=== PATIENT | female | born 1990 | race Caucasian/White ===

== ENCOUNTER 2016-08-07 14:55 | Emergency (ER) | payer OTHER ==
--- NOTE | 2016-08-07 15:37 | ED NURSING NOTES ---
Clinical Report - Nurses [facility] [address] [place] [address] 08/07/2016 14:57 Patient: MOIZ WELCH TRIAGE Triage time 15:06. Acuity: LEVEL 4. Chief Complaint: PAIN and VISION PROBLEM TO LEFT EYE. Alert. No acute distress. SEPSIS SCREEN: Sepsis Screen. Negative (no infection suspected/documented). NARESH COMA SCORE: Naresh Coma Scale: 15- eyes open spontaneously (4); best verbal response- oriented x 4 (5); best motor response- obeys commands (6). --15:13 Aleyda Vega R.N. 15:06 08/07/16. BP: 124/85. HR: 110. RR: 18. O2 saturation: 99%. Temp: 98.3 F. Pain level now 5/10. --15:13 Aleyda Vega R.N. Weight: 65.7 kg stated. Height/Length: 69 inches Per Patient. BMI: 21.4. --15:08 Aleyda Vega R.N. Medications None. --15:09 Aleyda Vega R.N. Allergies Sulfa Antibiotics. --15:09 Aleyda Vega R.N. History Arrived by private vehicle. Historian: patient. Unaccompanied. Primary physician (none). This started today. She did not sustain an injury. ( Pt. states she has been sleeping with her contacts in and not able to change them. She has had multiple eye infections in the past from this.). ( Pt. also c/o blood in stool: states she has had this for 3 months. It appears bright red in color. She also is having thick white vaginal discharge she is concerned about: this started a couple weeks ago. Denies abd. pain.). Treatment FITTER TACKER: None. PAST MEDICAL HX: Immunizations: up-to-date. Last normal menstrual period- 3 months ago. No contraception. SOCIAL HX: Current every day light tobacco smoker (cigarette)- less than 1/2 a pack per day. Occasional alcohol use. History of heavy IV drug use: heroin, methamphetamines. She has not traveled outside the [place] SELF HARM ASSESSMENT: A self harm assessment was performed. The patient answered "no" to the question "Are you here because you tried to hurt yourself?" and "Have you recently had thoughts about harming or killing others?". NUTRITIONAL RISK ASSESSMENT: The nutritional risk assessment revealed no deficiencies. FUNCTIONAL ASSESSMENT: Functional assessment: no impairments noted. LEARNING NEEDS ASSESSMENT: The learning needs assessment revealed no barriers. ABUSE ASSESSMENT: Abuse assessment: The patient was asked "Do you feel safe in your home?" and "Has anyone hurt you or threatened to hurt you?". --15:13 Aleyda Vega R.N. PROBLEMS: Hepatitis. Cystitis. UTI - Urinary Tract Infection. Lifestyle / Substance Problems. Substance Abuse. Drug Addiction. Anemia. Corneal Ulcer. Eye Injury. Wears Contacts. --15:10 Aleyda Vega R.N. ADDITIONAL SURGERIES: . --15:10 Aleyda Vega R.N. Interventions ID band on patient. Ambulatory. --15:13 Aleyda Vega R.N. PHYSICAL ASSESSMENT Ambulatory to room. GENERAL / NEURO / PSYCH: Alert. Appears in no acute distress. HEENT: No facial asymmetry noted. Conjunctival findings present: redness of the left conjunctiva. RESPIRATORY: Respirations not labored. CVS: Capillary refill less than 2 seconds. SKIN: Skin is warm and dry. --15:13 Aleyda Vega R.N. NURSING PROGRESS NOTES Patient gowned. Head of bed elevated. Two patient identifiers checked. Call light placed in reach. Side rails up x 2. Bed placed in lowest position. Brakes of bed on. Patient ready for evaluation- chart flagged. --15:14 Aleyda Vega R.N. DISPOSITION / DISCHARGE 15:44 08/07/16. Condition at departure: unchanged. The goals identified in the patient's plan of care were met. No learning barriers present. Discharge instructions provided and reviewed with the patient. Reviewed warnings. Reviewed medication(s). Treatments reviewed. Patient verbalized understanding. Written instructions provided in Sinhala. The patient was discharged by the nurse practitioner. She was discharged home. She left the Emergency Department ambulatory. FALL RISK ASSESSMENT: Fall risk assessment completed. No fall risk identified. --15:44 Stepan Davenport R.N. 15:44 08/07/16. BP: 118/72. HR: 81. RR: 14. O2 saturation: 100% on room air. --15:44 Stepan Davenport R.N. 15:45 08/07/16. Departure time: 15:45. --15:45 Stepan Davenport R.N. Locked/Released at 08/07/2016 15:45 by Stepan Davenport R.N.
--- NOTE | 2016-08-07 15:37 | ED NURSING NOTES ---
Clinical Report - Nurses [facility] [address] [place] [address] 08/07/2016 14:57 Patient: MOIZ WELCH TRIAGE Triage time 15:06. Acuity: LEVEL 4. Chief Complaint: PAIN and VISION PROBLEM TO LEFT EYE. Alert. No acute distress. SEPSIS SCREEN: Sepsis Screen. Negative (no infection suspected/documented). NARESH COMA SCORE: Naresh Coma Scale: 15- eyes open spontaneously (4); best verbal response- oriented x 4 (5); best motor response- obeys commands (6). --15:13 Aleyda Vega R.N. 15:06 08/07/16. BP: 124/85. HR: 110. RR: 18. O2 saturation: 99%. Temp: 98.3 F. Pain level now 5/10. --15:13 Aleyda Vega R.N. Weight: 65.7 kg stated. Height/Length: 69 inches Per Patient. BMI: 21.4. --15:08 Aleyda Vega R.N. Medications None. --15:09 Aleyda Vega R.N. Allergies Sulfa Antibiotics. --15:09 Aleyda Vega R.N. History Arrived by private vehicle. Historian: patient. Unaccompanied. Primary physician (none). This started today. She did not sustain an injury. ( Pt. states she has been sleeping with her contacts in and not able to change them. She has had multiple eye infections in the past from this.). ( Pt. also c/o blood in stool: states she has had this for 3 months. It appears bright red in color. She also is having thick white vaginal discharge she is concerned about: this started a couple weeks ago. Denies abd. pain.). Treatment STRATEGY EXECUTION CONSULTANT: None. PAST MEDICAL HX: Immunizations: up-to-date. Last normal menstrual period- 3 months ago. No contraception. SOCIAL HX: Current every day light tobacco smoker (cigarette)- less than 1/2 a pack per day. Occasional alcohol use. History of heavy IV drug use: heroin, methamphetamines. She has not traveled outside the [place] SELF HARM ASSESSMENT: A self harm assessment was performed. The patient answered "no" to the question "Are you here because you tried to hurt yourself?" and "Have you recently had thoughts about harming or killing others?". NUTRITIONAL RISK ASSESSMENT: The nutritional risk assessment revealed no deficiencies. FUNCTIONAL ASSESSMENT: Functional assessment: no impairments noted. LEARNING NEEDS ASSESSMENT: The learning needs assessment revealed no barriers. ABUSE ASSESSMENT: Abuse assessment: The patient was asked "Do you feel safe in your home?" and "Has anyone hurt you or threatened to hurt you?". --15:13 Aleyda Vega R.N. PROBLEMS: Hepatitis. Cystitis. UTI - Urinary Tract Infection. Lifestyle / Substance Problems. Substance Abuse. Drug Addiction. Anemia. Corneal Ulcer. Eye Injury. Wears Contacts. --15:10 Aleyda Vega R.N. ADDITIONAL SURGERIES: . --15:10 Aleyda Vega R.N. Interventions ID band on patient. Ambulatory. --15:13 Aleyda Vega R.N. PHYSICAL ASSESSMENT Ambulatory to room. GENERAL / NEURO / PSYCH: Alert. Appears in no acute distress. HEENT: No facial asymmetry noted. Conjunctival findings present: redness of the left conjunctiva. RESPIRATORY: Respirations not labored. CVS: Capillary refill less than 2 seconds. SKIN: Skin is warm and dry. --15:13 Aleyda Vega R.N. NURSING PROGRESS NOTES Patient gowned. Head of bed elevated. Two patient identifiers checked. Call light placed in reach. Side rails up x 2. Bed placed in lowest position. Brakes of bed on. Patient ready for evaluation- chart flagged. --15:14 Aleyda Vega R.N. DISPOSITION / DISCHARGE 15:44 08/07/16. Condition at departure: unchanged. The goals identified in the patient's plan of care were met. No learning barriers present. Discharge instructions provided and reviewed with the patient. Reviewed warnings. Reviewed medication(s). Treatments reviewed. Patient verbalized understanding. Written instructions provided in Uzbek. The patient was discharged by the nurse practitioner. She was discharged home. She left the Emergency Department ambulatory. FALL RISK ASSESSMENT: Fall risk assessment completed. No fall risk identified. --15:44 Stepan Davenport R.N. 15:44 08/07/16. BP: 118/72. HR: 81. RR: 14. O2 saturation: 100% on room air. --15:44 Stepan Davenport R.N. 15:45 08/07/16. Departure time: 15:45. --15:45 Stepan Davenport R.N. Locked/Released at 08/07/2016 15:45 by Stepan Davenport R.N.
--- NOTE | 2016-08-07 15:37 | ED CLINICAL REPORT ---
Clinical Report - Physicians/Mid Levels [facility] [address] [place] [address] 08/07/2016 14:57 Patient: MOIZ WELCH Time Seen: 15:20; initial patient contact, initial documentation, patient care assumed. Arrived- By private vehicle. Historian- patient. HISTORY OF PRESENT ILLNESS Chief Complaint: EYE PAIN, REDNESS and IRRITATION. This started about 2 - 3 days ago, involves the left eye, is characterized as moderate in severity and has been constant and is still present. The patient did not sustain an injury. She wears soft contact lenses. Eye pain, discomfort, redness and discharge. No eyelid swelling, blurred vision, double vision, decreased vision or loss of vision. Photophobia. REVIEW OF SYSTEMS All systems otherwise negative, except as recorded above. PAST HISTORY See nurses notes. The patient wears contact lenses. PROBLEMS: Hepatitis. Cystitis. UTI - Urinary Tract Infection. Lifestyle / Substance Problems. Substance Abuse. Drug Addiction. Anemia. Corneal Ulcer. Eye Injury. Wears Contacts. --15:10 Aleyda Vega RJenN. ADDITIONAL SURGERIES: . --15:10 Aleyda Vega R.N. SOCIAL HISTORY Light tobacco smoker. Occasional alcohol use. History of heavy IV drug use: heroin, methamphetamines. ADDITIONAL NOTES The nursing notes have been reviewed with agreement regarding the chief complaint, HPI, ROS, PMH and patient medications and allergies. PHYSICAL EXAM Vital Signs: 08/07/2016 15:06 BP: 124/85. HR: 110. RR: 18. O2 saturation: 99%. Temp: 98.3 F. Have been reviewed as abnormal and appear to be correct. Blood pressure normal. Tachycardic. Respiratory rate normal. Temperature normal. Oxygen saturation normal. Appearance: Alert. Oriented X3. (pt appears under the influence). No acute distress. HEENT: Nose normal. Pharynx normal. Head appears normal to external inspection. Rt Eye: Right eye exam normal. Eyes: Eyelids appear normal to inspection. Conjunctivae and sclerae do not appear normal to inspection. Corneas appear normal to inspection. Pupils equal, round and reactive to light. Accommodation normal. Funduscopic exam normal. Visual ledbetter normal. EOMs intact. Periorbital areas appear normal to inspection. Anterior chambers clear. Anterior chambers of normal depth. Lt Eye: Left eye exam normal. Slight exudate present. Neck: Neck supple. Normal inspection. Respiratory: No respiratory distress. Skin: No rash. Extremities: Extremities negative. Neuro: Oriented X 3. Mood/affect normal. No motor deficit. No sensory deficit. PROGRESS AND PROCEDURES Patient counseled in person regarding the patient's stable condition and diagnosis. 15:37. Differential Diagnosis: Other possible considerations: substance abuse, conjunctivitis, corneal fb/abrasions. Above considerations are based on history and physical exam. Differential diagnosis was discussed with patient. Disposition: Discharged home in good and unchanged condition (15:37). Condition: good and stable. CLINICAL IMPRESSION Acute mucopurulent conjunctivitis of the left eye. INSTRUCTIONS (no contacts till infection is gone). Warnings: GENERAL WARNINGS: Return or contact your physician immediately if your condition worsens or changes unexpectedly, if not improving as expected, or if other problems arise. Specifically return if problem worsens. Prescription Medications: Garamycin ophthalmic solution 0.3% : Instill 1 drop into affected eye every 4 hours while awake for 1 week. Dispense five (5) mL. No refills. Substitution is permissible. Follow-up: Follow up with your doctor in about three days as needed. Call for an appointment. Summary of care provided to patient. Understanding of the discharge instructions verbalized by patient. (Electronically signed by Dixie Rizzo A.R.N.P. 08/07/2016 19:20)
--- NOTE | 2016-08-07 19:20 | ED MED RECONCILIATION SUMMARY ---
Patient: MOIZ WELCH Medication Reconciliation Report [facility] VisitID: [id number] [place] [address] 25y, F Registration Date/Time: 08/07/2016 Weight: 65.7 kg Height/Length: 69 in. BMI: 21.4 ALLERGIES: Sulfa Antibiotics The patient's Home Medications are listed below: NONE. The source(s) of the original Home Medication information: Not obtained. The following Medications were given to the patient in the Emergency Department: None. The following Medications were prescribed to the patient: Garamycin ophthalmic solution 0.3% : Instill 1 drop into affected eye every 4 hours while awake for 1 week. Dispense five (5) mL. No refills. Substitution is permissible. -- Dixie Rizzo A.R.N.P.
--- NOTE | 2016-08-07 19:20 | ED MED RECONCILIATION SUMMARY ---
Patient: MOIZ WELCH Medication Reconciliation Report [facility] VisitID: [id number] [place] [address] 25y, F Registration Date/Time: 08/07/2016 Weight: 65.7 kg Height/Length: 69 in. BMI: 21.4 ALLERGIES: Sulfa Antibiotics The patient's Home Medications are listed below: NONE. The source(s) of the original Home Medication information: Not obtained. The following Medications were given to the patient in the Emergency Department: None. The following Medications were prescribed to the patient: Garamycin ophthalmic solution 0.3% : Instill 1 drop into affected eye every 4 hours while awake for 1 week. Dispense five (5) mL. No refills. Substitution is permissible. -- Dixie Rizzo A.R.N.P.
--- NOTE | 2016-08-07 19:20 | ED MAR SUMMARY ---
..... Medication Administration Record [facility] [address] [place], [place] [id number] Patient: MOIZ WELCH Visit ID: [id number] 25y, F Weight: 65.7 kg Height/Length: 69 in BMI: 21.4 ALLERGIES: Sulfa Antibiotics
--- NOTE | 2016-08-07 19:20 | ED DISCHARGE INSTRUCTIONS ---
Patient: MOIZ WELCH General Instructions [facility] VisitID: [id number] [place] [address] 25y, F Registration Date/Time: 08/07/2016 INSTRUCTIONS (no contacts till infection is gone). Warnings: GENERAL WARNINGS: Return or contact your physician immediately if your condition worsens or changes unexpectedly, if not improving as expected, or if other problems arise. Specifically return if problem worsens. Prescription Medications: Garamycin ophthalmic solution 0.3% : Instill 1 drop into affected eye every 4 hours while awake for 1 week. Dispense five (5) mL. No refills. Substitution is permissible. Follow-up: Follow up with your doctor in about three days as needed. Call for an appointment. Summary of care provided to patient. Understanding of the discharge instructions verbalized by patient. ADDITIONAL INFORMATION Conjunctivitis, Non-Specific The membrane that covers your eye is inflamed. Any itching, burning or irritation should go away within the next 24 hours. Conjunctivitis may be related to a particle that was in your eye. If so, it was washed out with your tears or irrigation treatment. Being exposed to liquid chemicals or fumes may also cause this reaction. Your condition does not appear to be due to an eye infection. Home Care: Apply a cold pack (ice in a plastic bag, wrapped in a towel) over the eye for 20 minutes at a time. This will reduce pain. Eye drops may be prescribed to reduce irritation or redness. Otherwise, Visine or similar [id number] decongestant eye drops may be used. You may use acetaminophen (Tylenol) or ibuprofen (Motrin, Advil) to control pain, unless another medicine was prescribed. [ NOTE: If you have chronic liver or kidney disease or ever had a stomach ulcer or GI bleeding, talk with your doctor before using these medicines.] Follow Up with your doctor or this facility as directed, or if your symptoms have not improved after 24 hours. Get Prompt Medical Attention if any of the following occur: Increased eyelid swelling Increase in eye pain Increased redness or drainage from the eye Failure of normal vision to return within 24-48 hours. You have been given the following additional information: Conjunctivitis, Non-Specific (Electronically signed by Dixie Rizzo A.R.NJenPJen 08/07/2016 19:20)
--- NOTE | 2016-08-07 19:20 | ED MAR SUMMARY ---
..... Medication Administration Record [facility] [address] [place], [place] [id number] Patient: MOIZ WELCH Visit ID: [id number] 25y, F Weight: 65.7 kg Height/Length: 69 in BMI: 21.4 ALLERGIES: Sulfa Antibiotics
--- NOTE | 2016-08-07 19:20 | ED DISCHARGE INSTRUCTIONS ---
Patient: MOIZ WELCH General Instructions [facility] VisitID: [id number] [place] [address] 25y, F Registration Date/Time: 08/07/2016 INSTRUCTIONS (no contacts till infection is gone). Warnings: GENERAL WARNINGS: Return or contact your physician immediately if your condition worsens or changes unexpectedly, if not improving as expected, or if other problems arise. Specifically return if problem worsens. Prescription Medications: Garamycin ophthalmic solution 0.3% : Instill 1 drop into affected eye every 4 hours while awake for 1 week. Dispense five (5) mL. No refills. Substitution is permissible. Follow-up: Follow up with your doctor in about three days as needed. Call for an appointment. Summary of care provided to patient. Understanding of the discharge instructions verbalized by patient. ADDITIONAL INFORMATION Conjunctivitis, Non-Specific The membrane that covers your eye is inflamed. Any itching, burning or irritation should go away within the next 24 hours. Conjunctivitis may be related to a particle that was in your eye. If so, it was washed out with your tears or irrigation treatment. Being exposed to liquid chemicals or fumes may also cause this reaction. Your condition does not appear to be due to an eye infection. Home Care: Apply a cold pack (ice in a plastic bag, wrapped in a towel) over the eye for 20 minutes at a time. This will reduce pain. Eye drops may be prescribed to reduce irritation or redness. Otherwise, Visine or similar [id number] decongestant eye drops may be used. You may use acetaminophen (Tylenol) or ibuprofen (Motrin, Advil) to control pain, unless another medicine was prescribed. [ NOTE: If you have chronic liver or kidney disease or ever had a stomach ulcer or GI bleeding, talk with your doctor before using these medicines.] Follow Up with your doctor or this facility as directed, or if your symptoms have not improved after 24 hours. Get Prompt Medical Attention if any of the following occur: Increased eyelid swelling Increase in eye pain Increased redness or drainage from the eye Failure of normal vision to return within 24-48 hours. You have been given the following additional information: Conjunctivitis, Non-Specific (Electronically signed by Dixie Rizzo A.R.NJenPJen 08/07/2016 19:20)
== END 2016-08-07 15:45 | disposition home or self-care (01) ==
LOC: ED SRH 14:55
DX: H10.022 Other mucopurulent conjunctivitis, left eye (principal); F17.210 Nicotine dependence, cigarettes, uncomplicated; Z88.2 Allergy status to sulfonamides

== ENCOUNTER 2016-10-19 19:50 | Emergency (ER) | payer OTHER ==
--- NOTE | 2016-10-19 21:44 | ED ORDER SUMMARY ---
..... Patient: MOIZ WELCH OrderSheet Merg[facility] VisitID: [id number] [place] [address] 26y, F Registration Date/Time: 10/19/2016 ORDER SHEET Weight: 63.5 kg (stated) Allergies: Sulfa Antibiotics GENERAL ORDERS: UA-Culture if indicated Urgent (20:31 10/19/2016 DDean R.N. per protocol) (Ack 20:35 IJurca ER Tech1) (21:46 DDean R.N.) GC/Chlamydia, Urine (Urine, Clean Catch) (urine) Urgent (21:45 10/19/2016 HBivens A.R.N.P.) (Ack 21:48 IJurca ER Tech1) (21:51 DDean R.N.) MEDICATION ORDERS: IV FLUIDS: ORDER SHEET NOTES: [Electronically signed by Zoie Webster R.N. (22:49 10/19/2016)] [Electronically signed by Dixie Rizzo.R.N.P. (23:04 10/19/2016)] [Electronically locked/signed by Zoie Webster R.N. (22:49 10/19/2016)]
--- NOTE | 2016-10-19 21:44 | ED ORDER SUMMARY ---
..... Patient: MOIZ WELCH OrderSheet [facility] VisitID: [id number] [place] [address] 26y, F Registration Date/Time: 10/19/2016 ORDER SHEET Weight: 63.5 kg (stated) Allergies: Sulfa Antibiotics GENERAL ORDERS: UA-Culture if indicated Urgent (20:31 10/19/2016 DDean R.N. per protocol) (Ack 20:35 IJurca ER Tech1) (21:46 DDean R.N.) GC/Chlamydia, Urine (Urine, Clean Catch) (urine) Urgent (21:45 10/19/2016 HBivens A.R.N.P.) (Ack 21:48 IJurca ER Tech1) (21:51 DDean R.N.) MEDICATION ORDERS: IV FLUIDS: ORDER SHEET NOTES: [Electronically signed by Zoie Webster R.N. (22:49 10/19/2016)] [Electronically signed by Dixie Rizzo.R.N.P. (23:04 10/19/2016)] [Electronically locked/signed by Zoie Webster R.N. (22:49 10/19/2016)]
--- NOTE | 2016-10-19 21:44 | ED CLINICAL REPORT ---
Clinical Report - Physicians/Mid Levels [facility] [address] [place] [address] 10/19/2016 19:56 [id number] Time Seen: 20:05; upon arrival, initial patient contact, initial documentation, patient care assumed. Arrived- By private vehicle. Historian- patient. HISTORY OF PRESENT ILLNESS Chief Complaint: VAGINAL DISCHARGE. This started about 2 days ago and still present. The symptoms are described as moderate. Modifying factors. Not worsened by anything. Not relieved by anything. The patient has had a moderate amount of yellow, burning vaginal discharge . There is no prior history of pelvic inflammatory disease or exposure to venereal disease. The patient does not believe the discharge to be a yeast infection. The patient has had vaginal itching. No abdominal pain, pelvic pain, vaginal pain, low back pain or flank pain. No pain with urination, urinary frequency, urgency of urination or hematuria. Sexually active- unprotected sex and heterosexual. No history of multiple sexual partners or exposure to sexually transmitted disease. (on period now). Denies current . Similar symptoms previously: None. Recent medical care: Not recently seen/assessed. REVIEW OF SYSTEMS No vomiting, diarrhea, fever, difficulty breathing or chest pain. All systems otherwise negative, except as recorded above. PAST HISTORY See nurses notes. ( PROBLEMS: Conjunctivitis. Hepatitis. Cystitis. UTI - Urinary Tract Infection. Lifestyle / Substance Problems. Substance Abuse. Drug Addiction. Anemia. Corneal Ulcer. --20:23 Zoie Webster, R.N. ADDITIONAL SURGERIES: . --20:23 Zoie Webster, R.N.). SOCIAL HISTORY Light tobacco smoker. Occasional alcohol use. History of heavy IV drug use: heroin, methamphetamines. Recently used drugs just prior to arrival. Under influence in ED. No recent travel. Is a local resident. FAMILY HISTORY Negative. ADDITIONAL NOTES The nursing notes have been reviewed with agreement regarding the chief complaint, HPI, ROS, PMH and patient medications and allergies. PHYSICAL EXAM Vital Signs: 10/19/2016 20:15 BP: 130/96. HR: 114. RR: 20. O2 saturation: 99%. Temp: 98.4 F. Pain level now: 08/14. Have been reviewed as abnormal and appear to be correct. Hypertensive. Tachycardic. Respiratory rate normal. Temperature normal. Oxygen saturation normal. Appearance: Alert. Oriented X3. No acute distress. (pt appears under the influence). HEENT: Normal external inspection. ENT: Pharynx normal. Neck: Neck supple. CVS: Tachycardia (ventricular rate = 110). Heart sounds abnormal. Respiratory: No respiratory distress. Breath sounds normal. Chest nontender. Abdomen: Soft and nontender. Back: Normal external inspection. Skin: Skin warm and dry. Normal skin color. No rash. Normal skin turgor. Extremities: Extremities nontender. No lower extremity edema. Neuro: Oriented X 3. Mood/affect normal. No motor deficit. No sensory deficit. LABS, X-RAYS, AND EKG Laboratory Tests: UA-Culture if indicated: (TRENT: 10/19/2016 20:15) ( [id number] 10/19/2016 20:47) Final results Test Result Flag Units (Reference) URINE COLOR YELLOW URINE APPEARANCE CLEAR URINE GLUCOSE NEGATIVE (NEGATIVE) URINE BILIRUBIN NEGATIVE (NEGATIVE) URINE KETONE NEGATIVE (NEGATIVE) URINE SPECIFIC GRAVITY 1.025 (1.010-1.030) URINE PH 6.0 (5.0-8.0) URINE PROTEIN NEGATIVE (NEGATIVE) URINE UROBILINOGEN 0.2 EU/dL (0.2-1.0) URINE NITRITE POSITIVE (NEGATIVE) URINE BLOOD NEGATIVE (NEGATIVE) URINE LEUK ESTERASE NEGATIVE (NEGATIVE) URINE RBC 0-1 rbc/hpf (0-1) URINE WBC 0-1 wbc/hpf (0-1) URINE EPITHELIAL CELLS 1-3 EPI/hpf (0-5) URINE BACTERIA MODERATE (2+ TO 3+) (NONE SEEN) URINE COMMENT CULTURE INDICATED URINE CULTURES ARE SET-UP BASED ON THE FOLLOWING CRITERIA:POSITIVE NITRITEPOSITIVE LEUKOCYTE ESTERASEGREATER THAN 10 WHITE BLOOD CELLSMODERATE (2+) OR GREATER BACTERIA . PROGRESS AND PROCEDURES Course of Care: nurse reporting when she brought pt back, pt was refusing to put on gown and does not want pelvic exam, and was stating she might not stay for tx if pelvic is done had discussion with pt re need for pelvic exam, cx's, pt declining exam, not concerned with std, same partner for 7 mos and he is clean, admits to sharing iv needles, says she has had yeast before and this is different, said she was googling everything, and she thinks she has bacterial infection, foul odor with cream colored dc, denies fishy smell, after discussion with pt, agreed to send urine for cx, and tx for bv and yeast, and if no better pt would f/u for pelvic exam. Patient counseled in person regarding the patient's stable condition and diagnosis. 21:43. Differential Diagnosis: Other possible considerations: gonorrhea, chlamydia, trich, yeast, bv, uti, substance abuse. Above considerations are based on history, physical exam and laboratory data. Differential diagnosis was discussed with patient. Disposition: Discharged home in good and unchanged condition (21:44). Condition: good and stable. CLINICAL IMPRESSION Vaginal discharge Acute urinary tract infection. No cystitis, pyelonephritis or hematuria. Not associated with indwelling catheter. INSTRUCTIONS No sexual contact. Warnings: GENERAL WARNINGS: Return or contact your physician immediately if your condition worsens or changes unexpectedly, if not improving as expected, or if other problems arise. Specifically return if problem worsens or fails to resolve. Prescription Medications: Flagyl 500 mg: Take 1 tablet orally every 12 hours for 7 days. No refill. Substitution is permissible. Macrobid 100 mg: Take 1 capsule orally every 12 hours for 7 days. No refills. Substitution is permissible. Diflucan 150 mg tablet: take 1 tablet orally today. No refills. Substitution is permissible. Follow-up: Follow up with your doctor in about three days as needed. Call for an appointment. Summary of care provided to patient. Understanding of the discharge instructions verbalized by patient. (Electronically signed by Dixie Rizzo A.R.N.P. 10/19/2016 23:04)
--- NOTE | 2016-10-19 21:44 | ED NURSING NOTES ---
Clinical Report - Nurses [facility] [address] [place] [address] 10/19/2016 19:56 Patient: MOIZ WELCH TRIAGE Triage time 2014. Acuity: LEVEL 3. Chief Complaint: PAINFUL URINATION, URGENCY and FREQUENCY and (pt has been incontenent x 3 over last weeks). --20:26 Zoie Webster R.N. 20:15 10/19/16. BP: 130/96. HR: 114. RR: 20. O2 saturation: 99%. Temp: 98.4 F. Pain level now: 08/14. Additional comments: "not really a pain, just a little uncomfortable, mostly itchy". --20:26 Zoie Webster R.N. Weight: 63.5 kg stated. Height/Length: 68 inches Per Patient. BMI: 21.3. --20:24 Zoie Webster R.N. Medications Primodophilus (OTC) GI med , last dose 0900. --20:30 Zoie Webtser R.N. Allergies Sulfa Antibiotics. --20:29 Zoie Webster R.N. History Arrived by private vehicle. Historian: patient. Unaccompanied. No primary care physician. ( foul smelling discharge , slightly yellow "not the thick white of a yeast infection"). PAST MEDICAL HX: Last normal menstrual period- started today- unusual for her, she doesn't usually have periods. SOCIAL HX: Light tobacco smoker (cigarette)- less than 1/2 a pack per day. History of drug use: heroin, methamphetamines. (heroin today before coming to hospital). No alcohol use. --20:26 Zoie Webster R.N. PROBLEMS: Conjunctivitis. Hepatitis. Cystitis. UTI - Urinary Tract Infection. Lifestyle / Substance Problems. Substance Abuse. Drug Addiction. Anemia. Corneal Ulcer. --20:23 Zoie Webster R.N. ADDITIONAL SURGERIES: . --20:23 Zoie Webster R.N. Interventions ID band on patient. To treatment room. --20:26 Zoie Webster R.N. PHYSICAL ASSESSMENT 20:15. Ambulatory to room. Patient gowned. GENERAL / NEURO / PSYCH: Alert. Oriented X 4. Appears in no acute distress. Appears anxious. RESPIRATORY: Respirations not labored. CVS: Capillary refill less than 2 seconds. GI / : Pain with urination. SKIN: Skin is warm and dry. --20:28 Zoie Webster R.N. NURSING PROGRESS NOTES 20:15. Patient gowned. Head of bed elevated. Reassurance given. Patient identifiers checked. Call light placed in reach. Side rails up. Bed placed in lowest position. Patient ready for evaluation- chart flagged. --20:26 Zoie Webster R.N. 20:15. Patient ID band checked for patient name and birthdate. Clean catch urine collected with return of yellow-colored urine; sample sent to lab for urinalysis and culture. Specimen labeled in the presence of the patient. --20:27 Zoie Webster R.N. 21:30. ( Pt states that vag exams "freak her out" and declines to have one. Talking with ERNP at length about options). --22:49 Zoie Webster R.N. DISPOSITION / DISCHARGE 21:50. Condition at departure: stable. No learning barriers present. Discharge instructions provided and reviewed with the patient. Reviewed medication(s) (flagyl, macrobid, diclucan). Patient verbalized understanding. Written instructions provided in Turkmen. The patient was discharged home and accompanied by parent. She left the Emergency Department ambulatory and via private vehicle. Parent driving. --22:47 Zoie Webtser R.N. 21:50 10/19/16. BP: 122/92. HR: 96. RR: 18. O2 saturation: 100%. Temp: deferred. Pain level now: 08/14. --22:47 Zoie Webster R.N. Locked/Released at 10/19/2016 22:49 by Zoie Webster R.N.
--- NOTE | 2016-10-19 23:04 | ED DISCHARGE INSTRUCTIONS ---
Patient: MOIZ WELCH General Instructions [facility] VisitID: [id number] [place] [address] 26y, F Registration Date/Time: 10/19/2016 Vaginal discharge Acute urinary tract infection. No cystitis, pyelonephritis or hematuria. Not associated with indwelling catheter. INSTRUCTIONS No sexual contact. Warnings: GENERAL WARNINGS: Return or contact your physician immediately if your condition worsens or changes unexpectedly, if not improving as expected, or if other problems arise. Specifically return if problem worsens or fails to resolve. Prescription Medications: Flagyl 500 mg: Take 1 tablet orally every 12 hours for 7 days. No refill. Substitution is permissible. Macrobid 100 mg: Take 1 capsule orally every 12 hours for 7 days. No refills. Substitution is permissible. Diflucan 150 mg tablet: take 1 tablet orally today. No refills. Substitution is permissible. Follow-up: Follow up with your doctor in about three days as needed. Call for an appointment. Summary of care provided to patient. Understanding of the discharge instructions verbalized by patient. ADDITIONAL INFORMATION Bacterial Vaginosis You have a bacterial infection of the vagina called bacterial vaginosis (BV). It may also be called gardnerella or non-specific vaginitis. BV occurs when the "bad" bacteria outnumber the "good" bacteria that are normally present in the vagina. Symptoms include foul-smelling vaginal discharge (most noticeable after vaginal intercourse). There may also be burning with urination. The burning is caused as the urine passes over the inflamed outer vaginal area. The cause of bacterial vaginosis is not certain. However, your risk is higher if you recently began a new sexual relationship, or have had many sex partners in the past. Your risk is also higher if you douche often. While bacterial vaginosis most often occurs only in sexually active women, this is not a true sexually transmitted disease. You did not get this from your partner. You cannot give it to your partner. The infection may be related to temporary changes in the pH of vaginal fluids after being exposed to semen. Home Care: Keep the genital area clean and free of discharge. Do this by wearing an absorbent sanitary pad and changing it often. Shower daily. When you shower, clean the outer vaginal area with plain soap and water. Do not douche during treatment unless advised to do so by your doctor. Routine douching after treatment is no longer recommended to clean the vagina. It raises your risk of vaginal infection and pelvic inflammatory disease. Avoid having sex until you have finished all antibiotic medicine and all symptoms have gone away. Wear cotton underwear or cotton-lined panty hose. Dont wear pants that are too tight. Limiting the number of sex partners you have lowers your risk of this and other vaginal infections, STDs, and HIV. Take all medicine as directed until it is gone, even if you are feeling better. If you dont do this, symptoms might return. Follow Up with your doctor if symptoms dont go away after the medicine is finished. Get Prompt Medical Attention if any of the following occur: Fever of 100.4F (38C) or higher, or as directed by your healthcare provider Lower abdominal pain Rash or joint pain Painful sores around the outer vaginal area or on your partners penis Debra Vaginal Infection Debra is an overgrowth of the yeast germs that are normally present in the vagina. The symptoms are itching and redness of the outer vaginal area and whitish discharge. You may also have a burning sensation when you pass urine. This is due to the urine contacting the inflamed outer vaginal tissues. This infection occurs when there is an imbalance in the natural fluids of the vagina. It may occur during , or when taking control pills or antibiotics. Other risk factors include diabetes, wearing tight underwear and douching too often. Home Care: Keep the genital area clean and free of discharge by wearing an absorbent sanitary pad. Change the pad often. Shower daily, cleaning the outer vaginal area with plain soap and water. Do not douche during treatment unless advised to do so by your doctor. Routine douching after treatment is no longer recommended to clean the vagina. It raises your risk of vaginal infection and pelvic inflammatory disease. Dont have sex until you have finished the medicine and all of your symptoms have gone away. Wear cotton underwear or cotton-lined panty hose. Dont wear pants that are too tight. Take all medicine as directed until it is gone. If you dont do this, symptoms might come back. Follow Up: Return to this facility or see your doctor if ALL symptoms have not cleared after treatment is complete. Get Prompt Medical Attention if any of the following occur: Fever of 100.4F (38C) or higher, or as directed by your healthcare provider Lower abdominal pain Rash or joint pain Painful sores around the outer vaginal area or on your partners penis Bladder Infection,Female (Adult) A bladder infection ("cystitis" or "UTI") usually causes a constant urge to urinate and a burning when passing urine. Urine may be cloudy, smelly or dark. There may be pain in the lower abdomen. A bladder infection occurs when bacteria from the vaginal area enter the bladder opening (urethra). This can occur from sexual intercourse, wearing tight clothing, dehydration and other factors. Home Care: Drink lots of fluids (at least 6-8 glasses a day, unless you must restrict fluids for other medical reasons). This will force the medicine into your urinary system and flush the bacteria out of your body. Avoid sexual intercourse until your symptoms are gone. Avoid caffeine, alcohol and spicy foods. These can irritate the bladder. A bladder infection is treated with antibiotics. You may also be given Pyridium (generic = phenazopyridine) to reduce the burning sensation. This medicine will cause your urine to become a bright orange color. The orange urine may stain clothing. You may wear a pad or panty-liner to protect clothing. Preventing Future Infections: Always wipe from front to back after a bowel movement. Keep the genital area clean and dry. Drink plenty of fluids each day to avoid dehydration. Both sexual partners should wash before intercourse. Urinate right after intercourse to flush out the bladder. Wear cotton underwear and cotton-lined panty hose; avoid tight-fitting pants. If you are on control pills and are having frequent bladder infections, discuss with your doctor. Follow Up: Return to this facility or see your doctor if ALL symptoms are not gone after three days of treatment. Get Prompt Medical Attention if any of the following occur: Fever of 100.4F (38C) or higher, or as directed by your healthcare provider No improvement by the third day of treatment Increasing back or abdominal pain Repeated vomiting; unable to keep medicine down Weakness, dizziness or fainting Vaginal discharge Pain, redness or swelling in the labia (outer vaginal area) Metronidazole Oral tablet What is this medicine? METRONIDAZOLE (me troe NI da zole) is an antiinfective. It is used to treat certain kinds of bacterial and protozoal infections. It will not work for colds, flu, or other viral infections. How should I use this medicine? Take this medicine by mouth with a full glass of water. Follow the directions on the prescription label. Take your medicine at regular intervals. Do not take your medicine more often than directed. Take all of your medicine as directed even if you think you are better. Do not skip doses or stop your medicine early. Talk to your mortgage loan officer originator regarding the use of this medicine in children. Special care may be needed. What side effects may I notice from receiving this medicine? Side effects that you should report to your doctor or health care administrative tech as soon as possible: allergic reactions like skin rash or hives, swelling of the face, lips, or tongue confusion, clumsiness difficulty speaking discolored or sore mouth dizziness fever, infection numbness, tingling, pain or weakness in the hands or feet trouble passing urine or change in the amount of urine redness, blistering, peeling or loosening of the skin, including inside the mouth seizures unusually weak or tired vaginal irritation, dryness, or discharge Side effects that usually do not require medical attention (report to your doctor or health care administrative tech if they continue or are bothersome): diarrhea headache irritability metallic taste nausea stomach pain or cramps trouble sleeping What may interact with this medicine? Do not take this medicine with any of the following medications: alcohol or any product that contains alcohol amprenavir oral solution cisapride disulfiram dofetilide dronedarone paclitaxel injection pimozide ritonavir oral solution sertraline oral solution sulfamethoxazole-trimethoprim injection thioridazine ziprasidone This medicine may also interact with the following medications: cimetidine lithium other medicines that prolong the QT interval (cause an abnormal heart rhythm) phenobarbital phenytoin warfarin What if I miss a dose? If you miss a dose, take it as soon as you can. If it is almost time for your next dose, take only that dose. Do not take double or extra doses. Where should I keep my medicine? Keep out of the reach of children. Store at room temperature below 25 degrees C (77 degrees F). Protect from light. Keep container tightly closed. Throw away any unused medicine after the expiration date. What should I tell my health care provider before I take this medicine? They need to know if you have any of these conditions: anemia or other blood disorders disease of the nervous system fungal or yeast infection if you drink alcohol containing drinks liver disease seizures an unusual or allergic reaction to metronidazole, or other medicines, foods, dyes, or preservatives or trying to get breast-feeding What should I watch for while using this medicine? Tell your doctor or health care administrative tech if your symptoms do not improve or if they get worse. You may get drowsy or dizzy. Do not drive, use machinery, or do anything that needs mental alertness until you know how this medicine affects you. Do not stand or sit up quickly, especially if you are an older patient. This reduces the risk of dizzy or fainting spells. Avoid alcoholic drinks while you are taking this medicine and for three days afterward. Alcohol may make you feel dizzy, sick, or flushed. If you are being treated for a sexually transmitted disease, avoid sexual contact until you have finished your treatment. Your sexual partner may also need treatment. Nitrofurantoin, Nitrofurantoin, Macrocrystalline Oral capsule What is this medicine? NITROFURANTOIN (jessie garrett) is an antibiotic. It is used to treat urinary tract infections. How should I use this medicine? Take this medicine by mouth with a glass of water. Follow the directions on the prescription label. Take this medicine with food or milk. Take your doses at regular intervals. Do not take your medicine more often than directed. Do not stop taking except on your doctor's advice. Talk to your mortgage loan officer originator regarding the use of this medicine in children. While this drug may be prescribed for selected conditions, precautions do apply. What side effects may I notice from receiving this medicine? Side effects that you should report to your doctor or health care administrative tech as soon as possible: allergic reactions like skin rash or hives, swelling of the face, lips, or tongue chest pain cough difficulty breathing dizziness, drowsiness fever or infection joint aches or pains pale or blue-tinted skin redness, blistering, peeling or loosening of the skin, including inside the mouth tingling, burning, pain, or numbness in hands or feet unusual bleeding or bruising unusually weak or tired yellowing of eyes or skin Side effects that usually do not require medical attention (report to your doctor or health care administrative tech if they continue or are bothersome): dark urine diarrhea headache loss of appetite nausea or vomiting temporary hair loss What may interact with this medicine? antacids containing magnesium trisilicate probenecid quinolone antibiotics like ciprofloxacin, lomefloxacin, norfloxacin and ofloxacin sulfinpyrazone What if I miss a dose? If you miss a dose, take it as soon as you can. If it is almost time for your next dose, take only that dose. Do not take double or extra doses. Where should I keep my medicine? Keep out of the reach of children. Store at room temperature between 15 and 30 degrees C (59 and 86 degrees F). Protect from light. Throw away any unused medicine after the expiration date. What should I tell my health care provider before I take this medicine? They need to know if you have any of these conditions: anemia diabetes [id number] dehydrogenase deficiency kidney disease liver disease lung disease other chronic illness an unusual or allergic reaction to nitrofurantoin, other antibiotics, other medicines, foods, dyes or preservatives or trying to get breast-feeding What should I watch for while using this medicine? Tell your doctor or health care administrative tech if your symptoms do not improve or if you get new symptoms. Drink several glasses of water a day. If you are taking this medicine for a long time, visit your doctor for regular checks on your progress. If you are diabetic, you may get a false positive result for sugar in your urine with certain brands of urine tests. Check with your doctor. Fluconazole Oral tablet What is this medicine? FLUCONAZOLE (floo KARTHIKEYAN na zole) is an antifungal medicine. It is used to treat certain kinds of fungal or yeast infections. How should I use this medicine? Take this medicine by mouth. Follow the directions on the prescription label. Do not take your medicine more often than directed. Talk to your mortgage loan officer originator regarding the use of this medicine in children. Special care may be needed. This medicine has been used in children as young as 6 months of age. What side effects may I notice from receiving this medicine? Side effects that you should report to your doctor or health care administrative tech as soon as possible: allergic reactions like skin rash or itching, hives, swelling of the lips, mouth, tongue, or throat dark urine feeling dizzy or faint irregular heartbeat or chest pain redness, blistering, peeling or loosening of the skin, including inside the mouth trouble breathing unusual bruising or bleeding vomiting yellowing of the eyes or skin Side effects that usually do not require medical attention (report to your doctor or health care administrative tech if they continue or are bothersome): changes in how food tastes diarrhea headache stomach upset or nausea What may interact with this medicine? Do not take this medicine with any of the following medications: cisapride pimozide red yeast rice This medicine may also interact with the following medications: control pills cyclosporine diuretics like hydrochlorothiazide medicines for diabetes that are taken by mouth medicines for high cholesterol like atorvastatin, lovastatin or simvastatin phenytoin ramelteon rifabutin rifampin some medicines for anxiety or sleep tacrolimus terfenadine theophylline tofacitinib warfarin What if I miss a dose? If you miss a dose, take it as soon as you can. If it is almost time for your next dose, take only that dose. Do not take double or extra doses. Where should I keep my medicine? Keep out of the reach of children. Store at room temperature below 30 degrees C (86 degrees F). Throw away any medicine after the expiration date. What should I tell my health care provider before I take this medicine? They need to know if you have any of these conditions: electrolyte abnormalities history of irregular heart beat kidney disease an unusual or allergic reaction to fluconazole, other azole antifungals, medicines, foods, dyes, or preservatives or trying to get breast-feeding What should I watch for while using this medicine? Visit your doctor or health care administrative tech for regular checkups. If you are taking this medicine for a long time you may need blood work. Tell your doctor if your symptoms do not improve. Some fungal infections need many weeks or months of treatment to cure. Alcohol can increase possible damage to your liver. Avoid alcoholic drinks. If you have a vaginal infection, do not have sex until you have finished your treatment. You can wear a sanitary napkin. Do not use tampons. Wear freshly washed cotton, not synthetic, panties. You have been given the following additional information: Vaginitis, Bacterial Vaginitis, Debra Bladder Infection, Female (Adult) Metronidazole Oral tablet Nitrofurantoin, Nitrofurantoin, Macrocrystalline Oral capsule Fluconazole Oral tablet (Electronically signed by Dixie Rizzo A.R.N.P. 10/19/2016 23:04)
--- NOTE | 2016-10-19 23:05 | ED MAR SUMMARY ---
..... Medication Administration Record [facility] [address] [place], [place] [id number] Patient: MOIZ WELCH Visit ID: [id number] 26y, F Weight: 63.5 kg Height/Length: 68 in BMI: 21.3 ALLERGIES: Sulfa Antibiotics
--- NOTE | 2016-10-19 23:05 | ED MED RECONCILIATION SUMMARY ---
Patient: MOIZ WELCH Medication Reconciliation Report [facility] VisitID: [id number] [place] [address] 26y, F Registration Date/Time: 10/19/2016 Weight: 63.5 kg Height/Length: 68 in. BMI: 21.3 ALLERGIES: Sulfa Antibiotics The patient's Home Medications are listed below: THE FOLLOWING MEDICATIONS NEED TO BE RECONCILED: Primodophilus (OTC) GI med , last dose: 0900 The source(s) of the original Home Medication information: Not obtained. The following Medications were given to the patient in the Emergency Department: None. The following Medications were prescribed to the patient: Flagyl 500 mg: Take 1 tablet orally every 12 hours for 7 days. No refill. Substitution is permissible. -- Dixie Rizzo A.R.N.P. Macrobid 100 mg: Take 1 capsule orally every 12 hours for 7 days. No refills. Substitution is permissible. -- Dixie Rizzo A.R.N.P. Diflucan 150 mg tablet: take 1 tablet orally today. No refills. Substitution is permissible. -- Dixie Rizzo A.R.N.P.
--- NOTE | 2016-10-19 23:05 | ED MED RECONCILIATION SUMMARY ---
Patient: MOIZ WELCH Medication Reconciliation Report [facility] VisitID: [id number] [place] [address] 26y, F Registration Date/Time: 10/19/2016 Weight: 63.5 kg Height/Length: 68 in. BMI: 21.3 ALLERGIES: Sulfa Antibiotics The patient's Home Medications are listed below: THE FOLLOWING MEDICATIONS NEED TO BE RECONCILED: Primodophilus (OTC) GI med , last dose: 0900 The source(s) of the original Home Medication information: Not obtained. The following Medications were given to the patient in the Emergency Department: None. The following Medications were prescribed to the patient: Flagyl 500 mg: Take 1 tablet orally every 12 hours for 7 days. No refill. Substitution is permissible. -- Dixie Rizzo A.R.N.P. Macrobid 100 mg: Take 1 capsule orally every 12 hours for 7 days. No refills. Substitution is permissible. -- Dixie Rizzo A.R.N.P. Diflucan 150 mg tablet: take 1 tablet orally today. No refills. Substitution is permissible. -- Dixie Rizzo A.R.N.P.
--- NOTE | 2016-10-19 23:05 | ED MAR SUMMARY ---
..... Medication Administration Record [facility] [address] [place], [place] [id number] Patient: MOIZ WELCH Visit ID: [id number] 26y, F Weight: 63.5 kg Height/Length: 68 in BMI: 21.3 ALLERGIES: Sulfa Antibiotics
== END 2016-10-19 21:50 | disposition home or self-care (01) ==
LOC: ED SRH 19:50
DX: N89.8 Other specified noninflammatory disorders of vagina (principal); N39.0 Urinary tract infection, site not specified; F17.210 Nicotine dependence, cigarettes, uncomplicated; F11.20 Opioid dependence, uncomplicated; Z88.2 Allergy status to sulfonamides
CPT/HCPCS: 90004; 90148; 90469; 91227; 91228

== ENCOUNTER 2017-02-10 04:08 | Emergency (ER) | payer OTHER ==
--- NOTE | 2017-02-10 05:53 | ED ORDER SUMMARY ---
..... Patient: MOIZ WELCH OrderSheet [facility] VisitID: [id number] [address] [place] [address] 26y, F Registration Date/Time: 02/10/2017 ORDER SHEET Weight: 70.3 kg (stated) Allergies: Sulfa Antibiotics GENERAL ORDERS: UA-Culture if indicated Urgent (04:17 02/10/2017 Benjamin Torres) (Ack 4:21 [employer]SO Interactive ER Surface Supervisor) (5:02 JQuivey R.N.) Urine Urgent (04:17 02/10/2017 Benjamin Torres) (Ack 4:21 Dayna ER Surface Supervisor) (5:02 JQuivey R.N.) MEDICATION ORDERS: Keflex PO 500 mg (NOW) (05:51 02/10/2017 Benjamin Torres) (6:05 JQuivey R.N.) IV FLUIDS: ORDER SHEET NOTES: [Electronically signed by Casey Delatorre R.N. (06:14 02/10/2017)] [Electronically signed by Elliott Jasmine Dr. (06:58 02/12/2017)] [Electronically locked/signed by Casey Delatorre R.N. (06:14 02/10/2017)]
--- NOTE | 2017-02-10 05:53 | ED ORDER SUMMARY ---
..... Patient: MOIZ WELCH OrderSheet [facility] VisitID: [id number] [address] [place] [address] 26y, F Registration Date/Time: 02/10/2017 ORDER SHEET Weight: 70.3 kg (stated) Allergies: Sulfa Antibiotics GENERAL ORDERS: UA-Culture if indicated Urgent (04:17 02/10/2017 Benjamin Torres) (Ack 4:21 Solum ER Slots Manager) (5:02 JQuivey R.N.) Urine Urgent (04:17 02/10/2017 Benjamin Torres) (Ack 4:21 Dayna ER Slots Manager) (5:02 JQuivey R.N.) MEDICATION ORDERS: Keflex PO 500 mg (NOW) (05:51 02/10/2017 Benjamin Torres) (6:05 JQuivey R.N.) IV FLUIDS: ORDER SHEET NOTES: [Electronically signed by Casey Delatorre R.N. (06:14 02/10/2017)] [Electronically signed by Elliott Jasmine Dr. (06:58 02/12/2017)] [Electronically locked/signed by Casey Delatorre R.N. (06:14 02/10/2017)]
--- NOTE | 2017-02-10 05:53 | ED NURSING NOTES ---
Clinical Report - Nurses [facility] [address] [place] [address] 02/10/2017 4:09 Patient: MOIZ WELCH TRIAGE Triage time 04:18. Acuity: LEVEL 4. Chief Complaint: URGENCY and (Incontinent). 04:32. Alert. SEPSIS SCREEN: Sepsis Screen. Negative (no infection suspected/documented). --04:32 Casey Delatorre R.N. 04:25 02/10/17. BP: 131/91. HR: 102. RR: 16. O2 saturation: 97%. Temp: 98.6 F (oral). Pain level now: 0/10. --04:32 Casey Delatorre R.N. Weight: 70.3 kg stated. Height/Length: 70 inches Per Patient. BMI: 22.2. --04:27 Casey Delatorre R.N. Medications None. --04:27 Casey Delatorre R.N. Allergies Sulfa Antibiotics. --04:18 Casey Delatorre R.N. Medication/allergy information source: the patient. --04:32 Casey Delatorre R.N. History Arrived by private vehicle. Historian: patient. Accompanied by friend. This started yesterday. ( Patient reports having urgency and 2 episodes of incontinence). Treatment TUMOR REGISTRAR: None. PAST MEDICAL HX: Immunizations: up-to-date. Last normal menstrual period was 2 weeks ago. SOCIAL HX: Current every day heavy tobacco smoker- less than 1 pack per day. History of drug use: heroin, methamphetamines. (daily). No alcohol use. No infectious disease exposure. ABUSE ASSESSMENT: No report of abuse. FALL RISK ASSESSMENT: Fall risk assessment completed. No fall risk identified. NUTRITIONAL RISK ASSESSMENT: The nutritional risk assessment revealed no deficiencies. FUNCTIONAL ASSESSMENT: Functional assessment: no impairments noted. LEARNING NEEDS ASSESSMENT: The learning needs assessment revealed no barriers. SKIN INTEGRITY ASSESSMENT: Skin integrity risk assessment completed. No skin integrity risk identified. --04:32 Casey Delatorre R.N. PROBLEMS: Hepatitis. Cystitis. UTI - Urinary Tract Infection. Lifestyle / Substance Problems. Anemia. Corneal Ulcer. --04:19 Casey Delatorre R.N. ADDITIONAL SURGERIES: . --04:19 Casey Delatorre R.N. Interventions ID band on patient. To treatment room. --04:32 Casey Delatorre R.N. PHYSICAL ASSESSMENT 04:20. Ambulatory to room. GENERAL / NEURO / PSYCH: Alert. Oriented X 4. HEENT: Mucous membranes are pink. RESPIRATORY: Respirations not labored. SKIN: Skin is warm and dry. --04:20 Casey Delatorre R.N. NURSING PROGRESS NOTES 04:19 Patient to restroom to collect urine sample. --04:32 Casey Delatorre R.N. 04:25 Patient reports unable to provide urine sample. --04:33 Casey Delatorre R.N. 04:36 Patient given cup of ice water to drink. --04:36 Casey Delatorre R.N. 04:51 Patient back in bathroom to collect urine sample. --04:59 Casey Delatorre R.N. 05:02. Patient ID band checked for patient name and birthdate: patient confirmed. Clean catch urine collected with return of yellow-colored clear urine; sample sent to lab for urinalysis. Specimen labeled in the presence of the patient. --05:02 Casey Delatorre R.N. 06:02. The patient is calm and resting quietly. SKIN: Skin is warm and dry. Skin color within normal limits. --06:05 Casey Delatorre R.N. 06:01 02/10/2017 Keflex (Cephalexin) PO 500 mg given. Allergies verified and confirmed 5 rights. --06:05 Casey Delatorre R.N. DISPOSITION / DISCHARGE Condition at departure: stable. No learning barriers present. Discharge instructions provided and reviewed with the patient. Reviewed medication(s) side effects, precautions, dosing and course information. Prescription(s) given to the patient. Patient verbalized understanding. Written instructions provided in Mongolian. The patient was discharged home and accompanied by sales process manager. She left the Emergency Department ambulatory and via private vehicle. Greenkeeper driving. FALL RISK ASSESSMENT: Fall risk assessment completed. No fall risk identified. --06:04 Casey Delatorre R.N. 06:03 02/10/17. BP: 112/85. HR: 95. RR: 15. O2 saturation: 99%. Pain level now: 0/10. --06:04 Casey Delatorre R.N. Departure time: 06:07. --06:05 Casey Delatorre R.N. Locked/Released at 02/10/2017 6:14 by Casey Delatorre R.N.
--- NOTE | 2017-02-10 05:53 | ED CLINICAL REPORT ---
Clinical Report - Physicians/Mid Levels [facility] [address] [place] [address] 02/10/2017 4:09 Patient: MOIZ WELCH Time Seen: 0418; initial patient contact. Arrived- By private vehicle. Historian- patient. HISTORY OF PRESENT ILLNESS Chief Complaint: DYSURIA. This started over a week and still present and worsening. It was gradual in onset and has been intermittent but is not gone now. The symptoms are described as mild. Modifying factors- worsened by urination. Relieved by rest. No abdominal pain. She has had pain with urination. The patient has had urinary frequency. Similar symptoms previously: (a few times). Recent medical care: Not recently seen/assessed. REVIEW OF SYSTEMS No skin rash. All systems otherwise negative, except as recorded above. PAST HISTORY See nurses notes. Medications: None. Allergies: Sulfa Antibiotics. ADDITIONAL NOTES The nursing notes have been reviewed. PHYSICAL EXAM Vital Signs: 02/10/2017 04:25 BP: 131/91. HR: 102. RR: 16. O2 saturation: 97%. Temp: 98.6 F. Pain level now: 0/10. Blood pressure normal. Oxygen saturation normal. Appearance: Alert. Oriented X3. No acute distress. (playing scratch lotto card). HEENT: Normal external inspection. ENT: Pharynx normal. Neck: Neck supple. CVS: Heart sounds normal. Respiratory: No respiratory distress. Breath sounds normal. Chest nontender. Abdomen: Soft and nontender. Bowel sounds normal. No mass. Skin: Skin warm and dry. Normal skin color. No rash. Normal skin turgor. Extremities: Extremities nontender. No lower extremity edema. LABS, X-RAYS, AND EKG Laboratory Tests: UA-Culture if indicated: (TRENT: 02/10/2017 05:00) ( MsgRcvd 02/10/2017 05:31) Final results Test Result Flag Units (Reference) URINE COLOR YELLOW URINE APPEARANCE CLEAR URINE GLUCOSE NEGATIVE (NEGATIVE) URINE BILIRUBIN NEGATIVE (NEGATIVE) URINE KETONE NEGATIVE (NEGATIVE) URINE SPECIFIC GRAVITY >= 1.030 (1.010-1.030) URINE PH 6.0 (5.0-8.0) URINE PROTEIN NEGATIVE (NEGATIVE) URINE UROBILINOGEN 0.2 EU/dL (0.2-1.0) URINE NITRITE POSITIVE (NEGATIVE) URINE BLOOD NEGATIVE (NEGATIVE) URINE LEUK ESTERASE NEGATIVE (NEGATIVE) URINE RBC 1-3 rbc/hpf (0-1) URINE WBC 1-3 wbc/hpf (0-1) URINE EPITHELIAL CELLS 1-3 EPI/hpf (0-5) URINE BACTERIA MODERATE (2+ TO 3+) (NONE SEEN) URINE COMMENT CULTURE INDICATED URINE CULTURES ARE SET-UP BASED ON THE FOLLOWING CRITERIA:POSITIVE NITRITEPOSITIVE LEUKOCYTE ESTERASEGREATER THAN 10 WHITE BLOOD CELLSMODERATE (2+) OR GREATER BACTERIA Urine: (TRENT: 02/10/2017 05:00) ( [facility] 02/10/2017 05:24) Final results Test Result Flag Units (Reference) URINE NEGATIVE Culture, Urine: (TRENT: 02/10/2017 05:00) ( [facility] 02/11/2017 10:54) IP Test Result Flag Units (Reference) CULTURE, URINE DATE: 02/11/17 PRELIM REPORT: PRELIMINARY REPORT #1 -- GNR QUANTITATIVE URINE GROWTH: GREATER THAN 100,000 CFU/mL ID AND SENS TO FOLLOW: IDENTIFICATION AND SENSITIVITY TO FOLLOW . PROGRESS AND PROCEDURES Course of Care: the patient is a 26-year-old female with no pertinent past medical history presenting for evaluation of urinary symptoms. At this time differential diagnosis includes urinary tract infection. Urine as well also be obtained. Patient is agreeable to treatment plan. Patient appears nontoxic and is no acute distress. Urinalysis is remarkable for the findings above. Patient with positive urinalysis. Patient with 2-3+ bacteria. Also with positive nitrates. First dose of antiemetics provided here in the emergency department. Repeat examination continues to be reassuring. Did not fill patient is admitted to the hospital require further emergency department workup/evaluation. Had a discussion with the patient in regards to her workup here in the emergency department including diagnosis, home care, follow-up, and return precautions. All questions have been answered. The patient expressed understanding of these instructions and was agreeable to them. Disposition: Discharged. Condition: good. CLINICAL IMPRESSION Acute urinary tract infection with cystitis and hematuria. INSTRUCTIONS Warnings: GENERAL WARNINGS: Return or contact your physician immediately if your condition worsens or changes unexpectedly, if not improving as expected, or if other problems arise. Specifically return if pain, vomiting, bleeding, breathing difficulty or fever. Your Current Medications: CONTINUE TAKING THE FOLLOWING MEDICATIONS: None*. Prescription Medications: Keflex 500 mg: take 1 capsule orally every 8 hours for 5 days. No refill. Substitution is permissible. (disp 15 caps) Follow-up: Return to the emergency department as needed. Follow up with your doctor in three days. Reason for referral: recheck today's concerns. Summary of care provided to patient via paper. Screening today revealed the patient's blood pressure to be in the normal range. The patient should follow up with a primary care provider for blood pressure management. Understanding of the discharge instructions verbalized by patient. (Electronically signed by Elliott Jasmine Dr. 02/12/2017 6:58)
--- NOTE | 2017-02-10 05:53 | ED NURSING NOTES ---
Clinical Report - Nurses [facility] [address] [place] [address] 02/10/2017 4:09 Patient: MOIZ WELCH TRIAGE Triage time 04:18. Acuity: LEVEL 4. Chief Complaint: URGENCY and (Incontinent). 04:32. Alert. SEPSIS SCREEN: Sepsis Screen. Negative (no infection suspected/documented). --04:32 Casey Delatorre R.N. 04:25 02/10/17. BP: 131/91. HR: 102. RR: 16. O2 saturation: 97%. Temp: 98.6 F (oral). Pain level now: 0/10. --04:32 Casey Delatorre R.N. Weight: 70.3 kg stated. Height/Length: 70 inches Per Patient. BMI: 22.2. --04:27 Casey Delatorre R.N. Medications None. --04:27 Casey Delatorre R.N. Allergies Sulfa Antibiotics. --04:18 Casey Delatorre R.N. Medication/allergy information source: the patient. --04:32 Casey Delatorre R.N. History Arrived by private vehicle. Historian: patient. Accompanied by friend. This started yesterday. ( Patient reports having urgency and 2 episodes of incontinence). Treatment PROPERTY SUPERVISOR: None. PAST MEDICAL HX: Immunizations: up-to-date. Last normal menstrual period was 2 weeks ago. SOCIAL HX: Current every day heavy tobacco smoker- less than 1 pack per day. History of drug use: heroin, methamphetamines. (daily). No alcohol use. No infectious disease exposure. ABUSE ASSESSMENT: No report of abuse. FALL RISK ASSESSMENT: Fall risk assessment completed. No fall risk identified. NUTRITIONAL RISK ASSESSMENT: The nutritional risk assessment revealed no deficiencies. FUNCTIONAL ASSESSMENT: Functional assessment: no impairments noted. LEARNING NEEDS ASSESSMENT: The learning needs assessment revealed no barriers. SKIN INTEGRITY ASSESSMENT: Skin integrity risk assessment completed. No skin integrity risk identified. --04:32 Casey Delatorre R.N. PROBLEMS: Hepatitis. Cystitis. UTI - Urinary Tract Infection. Lifestyle / Substance Problems. Anemia. Corneal Ulcer. --04:19 Casey Delatorre R.N. ADDITIONAL SURGERIES: . --04:19 Casey Delatorre R.N. Interventions ID band on patient. To treatment room. --04:32 Casey Delatorre R.N. PHYSICAL ASSESSMENT 04:20. Ambulatory to room. GENERAL / NEURO / PSYCH: Alert. Oriented X 4. HEENT: Mucous membranes are pink. RESPIRATORY: Respirations not labored. SKIN: Skin is warm and dry. --04:20 Casey Delatorre R.N. NURSING PROGRESS NOTES 04:19 Patient to restroom to collect urine sample. --04:32 Casey Delatorre R.N. 04:25 Patient reports unable to provide urine sample. --04:33 Casey Delatorre R.N. 04:36 Patient given cup of ice water to drink. --04:36 Casey Delatorre R.N. 04:51 Patient back in bathroom to collect urine sample. --04:59 Casey Delatorre R.N. 05:02. Patient ID band checked for patient name and birthdate: patient confirmed. Clean catch urine collected with return of yellow-colored clear urine; sample sent to lab for urinalysis. Specimen labeled in the presence of the patient. --05:02 Casey Delatorre R.N. 06:02. The patient is calm and resting quietly. SKIN: Skin is warm and dry. Skin color within normal limits. --06:05 Casey Delatorre R.N. 06:01 02/10/2017 Keflex (Cephalexin) PO 500 mg given. Allergies verified and confirmed 5 rights. --06:05 Casey Delatorre R.N. DISPOSITION / DISCHARGE Condition at departure: stable. No learning barriers present. Discharge instructions provided and reviewed with the patient. Reviewed medication(s) side effects, precautions, dosing and course information. Prescription(s) given to the patient. Patient verbalized understanding. Written instructions provided in P[place]. The patient was discharged home and accompanied by bufferer. She left the Emergency Department ambulatory and via private vehicle. Apprentice Electrician driving. FALL RISK ASSESSMENT: Fall risk assessment completed. No fall risk identified. --06:04 Casey Delatorre R.N. 06:03 02/10/17. BP: 112/85. HR: 95. RR: 15. O2 saturation: 99%. Pain level now: 0/10. --06:04 Casey Delatorre R.N. Departure time: 06:07. --06:05 Casey Delatorre R.N. Locked/Released at 02/10/2017 6:14 by Casey Delatorre R.N.
--- NOTE | 2017-02-12 06:58 | ED MAR SUMMARY ---
..... Medication Administration Record [facility] [address] [place] [address] Patient: MOIZ WELCH Visit ID: [id number] 26y, F Weight: 70.3 kg Height/Length: 70 in BMI: 22.2 ALLERGIES: Sulfa Antibiotics Given 06:01 02/10/2017 Casey Delatorre R.N. Medication Administered: KEFLEX [PO] (CEPHALEXIN), Dose: 500 mg PO. Medication Ordered: Keflex PO 500 mg (NOW).
--- NOTE | 2017-02-12 06:58 | ED MED RECONCILIATION SUMMARY ---
Patient: MOIZ WELCH Medication Reconciliation Report [facility] VisitID: [id number] [place] [address] 26y, F Registration Date/Time: 02/10/2017 Weight: 70.3 kg Height/Length: 70 in. BMI: 22.2 ALLERGIES: Sulfa Antibiotics The patient's Home Medications are listed below: NONE. The source(s) of the original Home Medication information: patient The following Medications were given to the patient in the Emergency Department: Keflex [PO] PO 500 mg, administered: 02/10/2017 6:01:00 AM The following Medications were prescribed to the patient: Keflex 500 mg: take 1 capsule orally every 8 hours for 5 days. No refill. Substitution is permissible.(disp 15 caps) -- Elliott Jasmine Dr.
--- NOTE | 2017-02-12 06:58 | ED DISCHARGE INSTRUCTIONS ---
Patient: MOIZ WELCH General Instructions [facility] VisitID: [id number] [place] [address] 26y, F Registration Date/Time: 02/10/2017 Acute urinary tract infection with cystitis and hematuria. INSTRUCTIONS Warnings: GENERAL WARNINGS: Return or contact your physician immediately if your condition worsens or changes unexpectedly, if not improving as expected, or if other problems arise. Specifically return if pain, vomiting, bleeding, breathing difficulty or fever. Your Current Medications: CONTINUE TAKING THE FOLLOWING MEDICATIONS: None*. Prescription Medications: Keflex 500 mg: take 1 capsule orally every 8 hours for 5 days. No refill. Substitution is permissible. (disp 15 caps) Follow-up: Return to the emergency department as needed. Follow up with your doctor in three days. Reason for referral: recheck today's concerns. Summary of care provided to patient via paper. Screening today revealed the patient's blood pressure to be in the normal range. The patient should follow up with a primary care provider for blood pressure management. Understanding of the discharge instructions verbalized by patient. ADDITIONAL INFORMATION Bladder Infection,Female (Adult) A bladder infection ("cystitis" or "UTI") usually causes a constant urge to urinate and a burning when passing urine. Urine may be cloudy, smelly or dark. There may be pain in the lower abdomen. A bladder infection occurs when bacteria from the vaginal area enter the bladder opening (urethra). This can occur from sexual intercourse, wearing tight clothing, dehydration and other factors. Home Care: Drink lots of fluids (at least 6-8 glasses a day, unless you must restrict fluids for other medical reasons). This will force the medicine into your urinary system and flush the bacteria out of your body. Avoid sexual intercourse until your symptoms are gone. Avoid caffeine, alcohol and spicy foods. These can irritate the bladder. A bladder infection is treated with antibiotics. You may also be given Pyridium (generic = phenazopyridine) to reduce the burning sensation. This medicine will cause your urine to become a bright orange color. The orange urine may stain clothing. You may wear a pad or panty-liner to protect clothing. Preventing Future Infections: Always wipe from front to back after a bowel movement. Keep the genital area clean and dry. Drink plenty of fluids each day to avoid dehydration. Both sexual partners should wash before intercourse. Urinate right after intercourse to flush out the bladder. Wear cotton underwear and cotton-lined panty hose; avoid tight-fitting pants. If you are on control pills and are having frequent bladder infections, discuss with your doctor. Follow Up: Return to this facility or see your doctor if ALL symptoms are not gone after three days of treatment. Get Prompt Medical Attention if any of the following occur: Fever of 100.4F (38C) or higher, or as directed by your healthcare provider No improvement by the third day of treatment Increasing back or abdominal pain Repeated vomiting; unable to keep medicine down Weakness, dizziness or fainting Vaginal discharge Pain, redness or swelling in the labia (outer vaginal area) Blood In The Urine Blood in the urine ("hematuria") has many possible causes. If it occurs after an injury (such as a car accident or fall), it is most often a sign of bruising to the kidney or bladder. Common medical causes of blood in the urine include urinary tract infection, kidney stone, inflammation, tumors, or certain other diseases of the kidney or bladder. Menstruation can cause blood to appear in the urine sample, although it is not coming from the urinary tract. If only a trace amount of blood is present, it will show up on the urine test, even though the urine may be yellow and not pink or red. This may occur with any of the above conditions, as well as heavy exercise or high fever. In this case, your doctor may want to repeat the urine test on another day. This will show if the blood is still present. If so, then other tests can be done to find out the cause. Home Care: If your urine does not appear bloody (pink, brown or red) then you do not need to restrict your activity in any way. If you can see blood in your urine, rest and avoid heavy exertion until your next exam. Do not use aspirin or anti-inflammatory medicine like ibuprofen (Motrin, Advil) or naproxen (Naprosyn, Aleve). These thin the blood and may increase bleeding. Follow Up with your doctor or as advised by our staff. If you were injured and had blood in your urine, you should have a repeat urine test in 1-2 days. Contact your doctor or return to this facility for this test. [NOTE: A radiologist will review any X-rays that were taken. We will notify you of any new findings that may affect your care.] Get Prompt Medical Attention if any of the following occur: Bright red blood or blood clots in the urine (if a new symptom) Weakness, dizziness or fainting New groin, abdominal or back pain Fever of 100.4F (38C) or higher, or as directed by your healthcare provider Repeated vomiting Bleeding from nose, gums or easy bruising Cephalexin Monohydrate Oral tablet What is this medicine? CEPHALEXIN (sef a YUVAL in) is a cephalosporin antibiotic. It is used to treat certain kinds of bacterial infections It will not work for colds, flu, or other viral infections. How should I use this medicine? Take this medicine by mouth with a full glass of water. Follow the directions on the prescription label. This medicine can be taken with or without food. Take your medicine at regular intervals. Do not take your medicine more often than directed. Take all of your medicine as directed even if you think you are better. Do not skip doses or stop your medicine early. Talk to your base manager regarding the use of this medicine in children. While this drug may be prescribed for selected conditions, precautions do apply. What side effects may I notice from receiving this medicine? Side effects that you should report to your doctor or health home day care provider as soon as possible: allergic reactions like skin rash, itching or hives, swelling of the face, lips, or tongue breathing problems pain or trouble passing urine redness, blistering, peeling or loosening of the skin, including inside the mouth severe or watery diarrhea unusually weak or tired yellowing of the eyes, skin Side effects that usually do not require medical attention (report to your doctor or health home day care provider if they continue or are bothersome): gas or heartburn genital or anal irritation headache joint or muscle pain nausea, vomiting What may interact with this medicine? probenecid some other antibiotics What if I miss a dose? If you miss a dose, take it as soon as you can. If it is almost time for your next dose, take only that dose. Do not take double or extra doses. There should be at least 4 to 6 hours between doses. Where should I keep my medicine? Keep out of the reach of children. Store at room temperature between 59 and 86 degrees F (15 and 30 degrees C). Throw away any unused medicine after the expiration date. What should I tell my health care provider before I take this medicine? They need to know if you have any of these conditions: kidney disease stomach or intestine problems, especially colitis an unusual or allergic reaction to cephalexin, other cephalosporins, penicillins, other antibiotics, medicines, foods, dyes or preservatives or trying to get breast-feeding What should I watch for while using this medicine? Tell your doctor or health home day care provider if your symptoms do not begin to improve in a few days. Do not treat diarrhea with over the counter products. Contact your doctor if you have diarrhea that lasts more than 2 days or if it is severe and watery. If you have diabetes, you may get a false-positive result for sugar in your urine. Check with your doctor or health home day care provider. You have been given the following additional information: Bladder Infection, Female (Adult) Hematuria Cephalexin Monohydrate Oral tablet (Electronically signed by Elliott Jasmine Dr. 02/12/2017 6:58)
--- NOTE | 2017-02-12 06:58 | ED MAR SUMMARY ---
..... Medication Administration Record [facility] [address] [place] [address] Patient: MOIZ WELCH Visit ID: [id number] 26y, F Weight: 70.3 kg Height/Length: 70 in BMI: 22.2 ALLERGIES: Sulfa Antibiotics Given 06:01 02/10/2017 Casey Delatorre R.N. Medication Administered: KEFLEX [PO] (CEPHALEXIN), Dose: 500 mg PO. Medication Ordered: Keflex PO 500 mg (NOW).
--- NOTE | 2017-02-12 06:58 | ED MED RECONCILIATION SUMMARY ---
Patient: MOIZ WELCH Medication Reconciliation Report [facility] VisitID: [id number] [place] [address] 26y, F Registration Date/Time: 02/10/2017 Weight: 70.3 kg Height/Length: 70 in. BMI: 22.2 ALLERGIES: Sulfa Antibiotics The patient's Home Medications are listed below: NONE. The source(s) of the original Home Medication information: patient The following Medications were given to the patient in the Emergency Department: Keflex [PO] PO 500 mg, administered: 02/10/2017 6:01:00 AM The following Medications were prescribed to the patient: Keflex 500 mg: take 1 capsule orally every 8 hours for 5 days. No refill. Substitution is permissible.(disp 15 caps) -- Elliott Jasmine Dr.
== END 2017-02-10 06:07 | disposition home or self-care (01) ==
LOC: ED SRH 04:08
DX: N30.01 Acute cystitis with hematuria (principal); Z88.2 Allergy status to sulfonamides
CPT/HCPCS: 90004; 90025; 90148; 90469; 93070